=== PATIENT | male | born 1965 | race Caucasian/White ===

== ENCOUNTER 2020-11-25 07:54 | Outpatient (CLI) | payer MEDICARE, SELFPAY ==
[2020-11-25 08:02] VITALS: BP 122/81; PULSE 76; RESP 18; TEMP 36.5; O2SAT 97; BMI 33.7
[2020-11-25 08:39] VITALS: BP 127/81; PULSE 62; RESP 18; TEMP 36.7; O2SAT 92
[2020-11-25 09:32] VITALS: BP 115/79; PULSE 61; RESP 18; TEMP 36.7; O2SAT 99
== END 2020-11-25 07:55 | disposition home or self-care (01) ==
LOC: OPS 07:59
PROVIDERS: PCP Nurse Practitioner; Visit Provider Nurse Practitioner Family
DX: U07.1 COVID-19 (principal)
CPT/HCPCS: 96365

== ENCOUNTER 2021-10-28 14:29 | Emergency (ER) | payer MEDICARE, MEDICAID, SELFPAY ==
[2021-10-28] VITALS (12 sets, daily range): BP systolic 119–175; BP diastolic 87–108; PULSE 59–80; RESP 12–24; TEMP 36.5; O2SAT 94–99; BMI 34.0
--- NOTE | 2021-10-28 14:38 | ECG_ITS ---
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 Measurements Intervals [place] Rate: 84 P: 45 MO: 156 QRS: 69 QRSD: 84 T: 55 QT: 319 QTc: 379 Interpretive Statements SINUS RHYTHM WITH SINUS ARRHYTHMIA LOW QRS VOLTAGE IN PRECORDIAL LEADS [QRS DEFLECTION < 1.0 mV IN CHEST LEADS] No previous ECG available for comparison Electronically Signed On 10-29-2021 6:18:54 CDT by Pham Melton M.D. [email or web address] Matter/store/NU/[id number] f
--- NOTE | 2021-10-28 15:06 | ED_ITS ---
HPI - Chest Pain General: Chief Complaint: Chest Pain Stated Complaint: Chest pain Time Seen by Provider: 10/28/21 14:56 Source: patient Mode of arrival: ambulatory Limitations: no limitations History of Present Illness: This patient presents to the emerged part with chest pain. He states the chest pain began after he awakened from sleep. He states it did not seemingly awaken him and he slept his normal amount of time. He states he has pain which is retrosternal. He also has what feels like burn ing sensation up into his throat. He states he has had several bouts of emesis associated with his pain which did not change his pain. He states there is no blood in his emesis. He states he had a coronary angiogram done a few years ago after he was having episodes of chest pain which was associated with cocaine use. He states he had clean coronaries at that time. He has hypertension and takes medications for that condition. He does not smoke cigarettes and rarely drinks alcohol. He is not a bladder in his stools or black tarry stools. He has had a prior cholecystectomy. He states that he use the weedeater yesterday but did not have any pain difficulty breathing etc. at that time. MD complaint: chest pain Onset: during rest Quality: aching and burning Associated symptoms: Reports vomiting; Deny abdominal pain, dyspnea, fever(s) or syncope Review of Systems Const: Denies: fever(s) or chills Eyes: Denies: change in vision ENMT: Denies: odynophagia, nasal discharge or nasal congestion Card: Reports: chest pain; Denies: edema, lightheadedness, syncope or pre-syncope Resp: Denies: dyspnea, productive cough or non-productive cough GI: Reports: vomiting; Denies: abdominal pain, hematemesis or change in bowel habits : Denies: flank pain, difficulty urinating or dysuria Musc: Denies: neck pain, back pain, extremity pain or extremity swelling Skin/Breast: Denies: rash Neuro: Denies: headache(s), numbness in extremities, weakness in extremities or dizziness Psych: Denies: anxiety or depression Endo: Denies: polyuria or polydipsia Abdias/Lymph: Denies: easy bruising or easy bleeding Physical Exam Narrative: EXAM NARRATIVE: Patient makes good eye contact speech is goal-directed. Const: COMMON NORMALS: patient oriented x3 and alert GENERAL APPEARANCE: cooperative and comfortable NUTRITIONAL APPEARANCE: overweight ORIENTATION/CONSCIOUSNESS: Yes awake HENMT: COMMON NORMALS: normocephalic, atraumatic, Normal nasal mucous membranes and turbinates present, moist oral mucous membranes and oropharynx normal HEAD & SCALP: normocephalic and atraumatic NOSE: Normal nasal mucous membranes and turbinates present Eye: COMMON NORMALS: Equal, round and reactive pupils present, EOMs intact bilaterally, conjunctivae normal and no scleral icterus CONJUNCTIVA: Yes conjunctivae normal PUPIL: Yes Equal, round and reactive pupils present Neck/C-Spine: COMMON NORMALS: full ROM, no lymphadenopathy, supple and no JVD Chest: COMMONS NORMALS: normal inspection of the chest and normal palpation of entire chest wall Resp: COMMON NORMALS: normal respiratory effort, No retractions, No use of accessory muscles and clear to auscultation bilaterally AUSCULTATION: clear to auscultation bilaterally Cardio: COMMON NORMALS: no JVD, regular rate, regular rhythm, No murmurs present (Cardio) and Peripheral pulses 2+ throughout RATE: regular rate RHYTHM: regular rhythm PERIPHERAL PULSES: Peripheral pulses 2+ throughout GI: COMMON NORMALS: Normal to inspection, nondistended, normoactive bowel sounds present, no masses and no bruits OTHER: Has some mild epigastric tenderness to palpation. Abdomen somewhat distended and obese but otherwise no rebound guarding or peritoneal signs. : COMMON NORMALS: Yes no CVA tenderness BLADDER/KIDNEY EXAM: Yes no CVA t enderness Back/Pelvis: COMMON NORMALS: no CVA tenderness, thoracic and lumbar spine normal to inspection, no thoracic nor lumbar tenderness and thoraco-lumbar ROM normal Extremity: COMMON NORMALS: normal to inspection, full ROM, no calf tenderness and no pedal edema Neuro: COMMON NORMALS: patient oriented x3, moves all extremities, no focal motor deficits and no sensory deficits noted SENSORIUM/ORIENTATION: Yes alert CRANIAL NERVES: Yes CN normal except as noted Psych: COMMON NORMALS: mental status grossly normal Skin: COMMON NORMALS: no rashes or lesions noted, no wounds, turgor normal and no petechiae GENERAL SKIN EXAM: no rashes or lesions noted and turgor normal Course Reevaluation(s): Reevaluation #1: Patient states he is feeling much better. No pain or discomfort at this time. Discussed current findings. Awaiting second troponin and as long as that is reassuring I think he will be safe to be discharged with a PPI and close follow- up. Time: 17:39 Vital Signs: Vital signs: Vital Signs Temperature 97.7 F 10/28/21 14:43 Pulse Rate 69 10/28/21 16:00 Respiratory Rate 16 10/28/21 16:48 Blood Pressure 123/98 10/28/21 16:00 Pulse Oximetry 94 10/28/21 16:00 MDM - Chest Pain Medical Decision Making Patient presented with burning substernal and epigastric pain that began this morning associated with emesis. Has history of having a negative angiogram in the last few years. Also has had a prior cholecystectomy. His work-up today revealed reassuring electrocardiograms, serial troponins and with resolution of his symptoms after PPI and analgesics. Clinical picture does not suggest an ongoing emergency medical condition and suggest more acute gastritis, esophagitis etc. He is currently clinically stable and the plan will be to place him on a proton pump inhibitor for the next 4 weeks. Discussed expected course and return precautions with both he and spouse. Stable at this time. Lab Data I reviewed the patient's lab results. : 10/28/21 15:03 10/28/21 15:03 Radiology Impressions Chest X-Ray 10/28/21 15:10 Impression: Negative chest. Laboratory Results WBC 9.1 10^3/uL (4.0-10.0) 10/28/21 15:03 RBC 4.86 10^6/uL (4.1-5.3) 10/28/21 15:03 Hgb 15.0 g/dL (11.7-16.6) 10/28/21 15:03 Hct 45.1 % (42.0-52.0) 10/28/21 15:03 MCV 92.8 fl (80-94) 10/28/21 15:03 MCH 30.9 pg (28.0-34.0) 10/28/21 15:03 MCHC 33.3 g/dL (30.0-36.0) 10/28/21 15:03 RDW 12.4 % (12.1-15.1) 10/28/21 15:03 Plt Count 225 10^3/cmm (130-400) 10/28/21 15:03 MPV 9.3 fL (7.4-10.4) 10/28/21 15:03 Neut % (Auto) 65.7 % 10/28/21 15:03 Lymph % (Auto) 24.0 % 10/28/21 15:03 [place] % (Auto) 7.5 % 10/28/21 15:03 Eos % (Auto) 2.1 % 10/28/21 15:03 Baso % (Auto) 0.4 % 10/28/21 15:03 Neut # (Auto) 5.97 10^3/uL (1.8-7.7) 10/28/21 15:03 Lymph # (Auto) 2.2 10^3/uL (0.8-4.8) 10/28/21 15:03 [place] # (Auto) 0.7 10^3/uL (0.2-0.9) 10/28/21 15:03 Eos # (Auto) 0.2 10^3/uL (0.0-0.8) 10/28/21 15:03 Baso # (Auto) 0.0 10^3/uL (0.0-0.1) 10/28/21 15:03 Nucleated RBC % (auto) 0 % 10/28/21 15:03 Nucleated RBCs # 0.0 /100WBC 10/28/21 15:03 Sodium 139 mmol/L (136-145) 10/28/21 15:03 Potassium 4.6 mmol/L (3.5-5.1) 10/28/21 15:03 Chloride 104 mmol/L (98-107) 10/28/21 15:03 Carbon Dioxide 25 mmol/L (22-29) 10/28/21 15:03 Anion Gap 14.6 (5-19) 10/28/21 15:03 BUN 23 mg/dL (6-20) H 10/28/21 15:03 Creatinine 1.0 mg/dL (0.7-1.2) 10/28/21 15:03 GFR Calculation 77.6 mL/min (90-130) L 10/28/21 15:03 Glucose 87 mg/dL (65-115) 10/28/21 15:03 Calculated Osmolality 291 mOsm/kg (285-295) 10/28/21 15:03 Calcium 9.8 mg/dL (8.5-10.5) 10/28/21 15:03 Total Bilirubin 0.3 mg/dL (0.15-1.2) 10/28/21 15:03 AST 21 U/L (0-40) 10/28/21 15:03 ALT 21 U/L (0-41) 10/28/21 15:03 Alkaline Phosphatase 80 U/L (40-130) 10/28/21 15:03 Troponin T Baseline 6 ng/L (0-15) 10/28/21 15:03 Troponin T 120 Minute 6.00 ng/L (0-15) 10/28/21 16:55 Total Protein 7.3 g/dL (6.6-8.7) 10/28/21 15:03 Albumin 4.3 g/dL (3.5-5.2) 10/28/21 15:03 Globulin 3.0 g/dL (1.3-4.6) 10/28/21 15:03 Discharge Plan Discharge Patient Disposition: Home Clinical Impression: Gastroesophageal reflux Condition: Stable Prescriptions: New pantoprazole [Protonix] 40 mg tablet,delayed release (DR/EC) 40 mg PO DAILY 28 Days Qty: 30 0RF No Action cyclobenzaprine 10 mg Tablet 10 mg PO TID PRN (Reason: Muscle Spasm) Zyrtec 10 mg Tablet 10 mg PO DAILY atorvastatin 10 mg tablet 10 mg PO DAILY meloxicam 15 mg tablet 15 mg PO DAILY lisinopril 20 mg tablet 20 mg PO DAILY prednisone 20 mg tablet 40 mg PO DAILY PRN (Reason: Shortness Of Breath) propranolol 60 mg capsule,extended release 24 hr 60 mg PO DAILY sertraline 100 mg tablet 100 mg PO DAILY sumatriptan succinate 50 mg Tablet 50 mg PO Q2H PRN (Reason: Migraine Headache) Rx Instructions: do not exceed 4 doses per 24 hrs hydrocodone-acetaminophen 10-325 mg tablet 1 tab PO BID montelukast 10 mg tablet 10 mg PO DAILY diazepam 5 mg tablet 5 mg PO BID Atrovent HFA 17 mcg/actuation HFA aerosol inhaler 2 puff INHALATION Q6H PRN (Reason: Shortness Of Breath) Discharge Orders: Discharge ED (Routine); Ordered 10/28/21 Ordered By: Jesus Manuel France Referrals: Margarito Eldridge FNP [Primary Care Provider] - Discharge Diet: Usual diet Discharge Activity: Increase activity as tolerated Patient Instructions: Opioid Safety Activity Restrictions/Additional Instructions: As we discussed while you are in the emergency department today our findings do not suggest a serious cause of your symptoms such as heart attack etc. today. This is probably related to inflammation of your stomach lining called gastritis or gastroesophageal reflux. We have provided a prescription to help reduce acid production in your stomach to take for the next 4 weeks. Should you develop any sustained chest pain, shortness of breath, changes in your symptoms otherwise return to this or the nearest emergency department for reevaluation. Coding Level of Care Code ED Vehicle Calibration Engineer for Bridger Fwmaninder Exam Comprehensive
--- NOTE | 2021-10-28 15:10 | XR_ITS ---
WS: [id number] Portable AP upright chest, 10/28/2021 Clinical Data: cp Comparison: None. Findings: No nodules, masses or effusions are seen. The heart is normal. The pulmonary vascularity is not increased. No pneumonia or pneumothorax is seen. Monitor leads are on the chest wall. There is a slight levoscoliosis of the upper thoracic spine. XR/XR chest 1V portable [id number] Impression: Negative chest.
[2021-10-28] MEDS: aspirin 81 mg Chew Tablet 324 MG PO (15:18)
[2021-10-28] MEDS: morphine 4 mg/mL SDV 1 mL IVP (15:18)
[2021-10-28] MEDS: pantoprazole 40 mg SDV IVP (15:18)
[2021-10-28] MEDS: sodium chloride 0.9% 500 ML 999 ML IV (15:19)
[2021-10-28 15:28] LABS: Basophils % 0.4 %; Eosinophils # 0.2 10^3/uL (0.0-0.8); Eosinophils % 2.1 %; Hematocrit 45.1 % (42.0-52.0); Lymphocytes # 2.2 10^3/uL (0.8-4.8); Mean Corpuscular HGB Conc 33.3 g/dL (30.0-36.0); Mean Corpuscular Hemoglobin 30.9 pg (28.0-34.0); Mean Corpuscular Volume 92.8 fl (80-94); Mean Platelet Volume 9.3 fL (7.4-10.4); Monocytes # 0.7 10^3/uL (0.2-0.9); Monocytes % 7.5 %; Neutrophils # 5.97 10^3/uL (1.8-7.7); Neutrophils % 65.7 %; Nucleated Red Blood Cells % 0 %; Platelet Count 225 10^3/cmm (130-400); Red Blood Count 4.86 10^6/uL (4.1-5.3); Red Cell Distribution Width 12.4 % (12.1-15.1); White Blood Count 9.1 10^3/uL (4.0-10.0)
[2021-10-28 15:53] LABS: Troponin(5th) Baseline 6 ng/L (0-15)
[2021-10-28 15:55] LABS: Alanine Aminotransferase 21 U/L (0-41); Albumin Level 4.3 g/dL (3.5-5.2); Alkaline Phosphatase 80 U/L (40-130); Blood Urea Nitrogen 23 mg/dL (6-20); Calcium 9.8 mg/dL (8.5-10.5); Carbon Dioxide 25 mmol/L (22-29); Chloride 104 mmol/L (98-107); Glomerular Filtration Rate 77.6 mL/min (90-130); Glucose 87 mg/dL (65-115); Osmolality Calculated 291 mOsm/kg (285-295); Sodium 139 mmol/L (136-145); Total Bilirubin 0.3 mg/dL (0.15-1.2); Total Protein 7.3 g/dL (6.6-8.7)
[2021-10-28 16:07] LABS: Anion Gap 14.6 (5-19); Aspartate Amino Transferase 21 U/L (0-40); Potassium 4.6 mmol/L (3.5-5.1)
[2021-10-28] MEDS: HYDROmorphone 1 mg/mL INJ 1 mL IVP (16:48)
--- NOTE | 2021-10-28 17:43 | ECG_ITS ---
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 Measurements Intervals [place] Rate: 54 P: 58 MA: 160 QRS: 76 QRSD: 80 T: 67 QT: 366 QTc: 348 Interpretive Statements SINUS BRADYCARDIA Compared to ECG 10/28/2021 14:38:26 Sinus rhythm no longer present Sinus arrhythmia no longer present Electronically Signed On 10-29-2021 6:27:53 CDT by Pham Melton M.D. [email or web address] hospitalVisure Solutionslima memorial hospitalHammer and Grind/store/OM/[id number]
[2021-10-28 18:10] LABS: Troponin 5 2HR Delta 0 ABS# (0-10)
== END 2021-10-28 18:55 | disposition home or self-care (01) ==
PROVIDERS: Emergency Provider Emergency Medicine; PCP Nurse Practitioner
DX: K21.9 Gastro-esophageal reflux disease without esophagitis (principal)
CPT/HCPCS: 71045; 80053; 84484; 85025; 93005; 96374; 96375; 99285; C9113; J1170; J2270; J7040

== ENCOUNTER → 2022-12-05 15:45 | Outpatient (BNVA) | payer MEDICARE, MEDICAID, SELFPAY | PROVIDERS: PCP Nurse Practitioner; Visit Provider Internal Medicine Cardiovascular Disease | DX: R07.9 Chest pain, unspecified (principal); R55 Syncope and collapse; I10 Essential (primary) hypertension; J44.89 Other specified chronic obstructive pulmonary disease; E78.5 Hyperlipidemia, unspecified; G47.33 Obstructive sleep apnea (adult) (pediatric) | CPT/HCPCS: 93005; 99204 ==

== ENCOUNTER 2022-12-15 11:56 | Outpatient (CLI) | payer MEDICARE, MEDICAID, SELFPAY ==
--- NOTE | 2022-12-15 12:15 | USCV_ITS ---
Ariel Martin Age: 57 Gender: M : 1965 Exam Date: 12/15/2022 12:18 Ordering Phys: Rylee Wylie MD ([email or web address]) Technologist: Exam Location: [facility] [place] Indication: chest pain BP: 125 / 75 HR: 66 Rhythm: Sinus Technical Quality: Adequate MEASUREMENTS (Male / Female) Normal Values 2D ECHO LV Diastolic Diameter PLAX 3.8 cm 4.2 - 5.9 / 3.9 - 5.3 cm LV Systolic Diameter PLAX 2.2 cm IVS Diastolic Thickness 1.2 cm 0.6 - 1.0 / 0.6 - 0.9 cm IVS Systolic Thickness 1.5 cm LVPW Diastolic Thickness 1.0 cm 0.6 - 1.0 / 0.6 - 0.9 cm LVPW Systolic Thickness 1.0 cm LVOT Diameter 2.3 cm LV Ejection Fraction 2D Teich 73.2 % LV Ejection Fraction MOD 2C 60.7 % LV Ejection Fraction 2C AL 59.3 % LA Diameter 3.5 cm IVC Diameter 2.1 cm M-MODE Aortic Annulus Diameter 3.8 cm LA Ao Ratio MM 1.1 MV E Point Septal Separation 0.9 cm DOPPLER AV Peak Velocity 99.0 cm/s LVOT Peak Velocity 90.0 cm/s AV Area Cont Eq vti 6.0 cm squared AV Area Cont Eq pk 3.9 cm squared MV Area PHT 2.9 cm squared Mitral E to A Ratio 0.8 MV E' Velocity 36.5 cm/s Mitral E to MV E' Ratio 6.9 Mitral E to LV E' Lateral Ratio 6.0 Mitral E to LV E' Septal Ratio 8.3 TR Peak Velocity 176.8 cm/s TR Peak Gradient 12.5 mmHg TV Peak E Velocity 82.0 cm/s Right Atrial Pressure 3.0 mmHg Pulmonary Artery Systolic Pressu 15.5 mmHg FINDINGS Left Ventricle Normal left ventricular size and systolic function, EF 72 %. No regional wall motion abnormalities. Right Ventricle The right ventricle is normal in size and function. Right Atrium The right atrium is normal in size. Left Atrium The left atrium is normal in size. Mitral Valve No gross abnormalities noted Aortic Valve No gross abnormalities noted Tricuspid Valve Trace tricuspid valve regurgitation. Pulmonic Valve No gross abnormalities noted Pericardium Normal pericardium without effusion. Aorta Normal ascending aorta dimension. IVC The inferior vena cava appears normal. CONCLUSIONS Normal left ventricular size and systolic function, EF 72 %. No regional wall motion abnormalities. Normal cardiac chamber sizes. No significant stenotic or regurgitant lesions Trace tricuspid valve regurgitation. Estimated pulmonary artery peak systolic pressure 22 mmHg There is no pericardial effusion. No similar previous studies are available for comparison Dr Rylee Wylie MD FAC (Electronically Signed) Final Date: 17 December 2022 12:32 S
== END 2022-12-15 11:57 | disposition home or self-care (01) ==
PROVIDERS: PCP Nurse Practitioner; Visit Provider Internal Medicine Cardiovascular Disease
DX: R06.09 Other forms of dyspnea (principal); R07.9 Chest pain, unspecified
CPT/HCPCS: 93306

== ENCOUNTER → 2023-02-20 12:19 | Outpatient (BNVA) | payer MEDICARE, MEDICAID, SELFPAY | PROVIDERS: PCP Nurse Practitioner; Visit Provider Internal Medicine Pulmonary Disease | DX: J44.89 Other specified chronic obstructive pulmonary disease (principal); Z87.891 Personal history of nicotine dependence; R06.02 Shortness of breath | CPT/HCPCS: 36415; 82785; 85025; 86003; 99204 ==

== ENCOUNTER 2023-03-01 10:03 | Outpatient (CLI) | payer MEDICARE, MEDICAID, SELFPAY ==
--- NOTE | 2023-03-01 10:15 | CT_ITS ---
WS: [id number] LDCT LUNG CANCER SCREENING TECHNIQUE: Noncontrast CT of the chest with coronal and sagittal reformatted images. CLINICAL INFORMATION: Cancer Screen COMPARISON: None. DLP: 93.81 mGy.cm DIvol: Mean CTDIvol: 2.20 (mGy) All CT scans at [facility] use at least one of these dose optimization techniques: automat ed exposure control; mA and/or kV adjustment per patient size (includes targeted exams where dose is matched to clinical indication); or iterative reconstruction. FINDINGS: Slight nodular thickening along the RIGHT minor fissure. Tiny subpleural nodule RIGHT upper lobe posteriorly. Slight bibasilar atelectasis. Normal caliber thoracic aorta. Mild aortic calcification. No mediastinal or hilar lymphadenopathy. No axillary lymphadenopathy. Prior cholecystectomy. Normal GE junction. Mild thoracic curve. Mild thoracic kyphosis. IMPRESSION: CT/CT lung screening [id number] LUNG-RADS: 2-Benign Appearance or Behavior FOLLOW UP: 12 Month: Continue annual screening with LDCT
== END 2023-03-01 10:04 | disposition home or self-care (01) ==
LOC: RAD 10:04
PROVIDERS: PCP Nurse Practitioner; Visit Provider Internal Medicine Pulmonary Disease
DX: Z12.2 Encounter for screening for malignant neoplasm of respiratory organs (principal); Z87.891 Personal history of nicotine dependence
CPT/HCPCS: 71271

== ENCOUNTER 2023-03-09 06:56 | Outpatient (CLI) | payer MEDICARE, MEDICAID, SELFPAY | END 2023-03-09 06:57 | disposition home or self-care (01) | PROVIDERS: PCP Nurse Practitioner; Visit Provider Internal Medicine Pulmonary Disease | DX: J44.89 Other specified chronic obstructive pulmonary disease (principal) | CPT/HCPCS: 94010; 94618; 94726; 94729 ==

== ENCOUNTER → 2023-03-13 12:48 | Outpatient (BNVA) | payer MEDICARE, MEDICAID, SELFPAY | PROVIDERS: PCP Nurse Practitioner; Visit Provider Nurse Practitioner Family | DX: I10 Essential (primary) hypertension (principal); R07.9 Chest pain, unspecified | CPT/HCPCS: 99213 ==

== ENCOUNTER → 2023-04-03 13:19 | Outpatient (BNVA) | payer MEDICARE, MEDICAID, SELFPAY | PROVIDERS: PCP Nurse Practitioner; Visit Provider Internal Medicine Pulmonary Disease | DX: J44.89 Other specified chronic obstructive pulmonary disease (principal); Z12.2 Encounter for screening for malignant neoplasm of respiratory organs; G47.33 Obstructive sleep apnea (adult) (pediatric); Z87.891 Personal history of nicotine dependence; Z79.52 Long term (current) use of systemic steroids; Z79.82 Long term (current) use of aspirin; Z99.81 Dependence on supplemental oxygen; Z91.198 Patient's noncompliance with other medical treatment and regimen for other reason | CPT/HCPCS: 99214 ==

== ENCOUNTER 2023-07-20 13:23 | Outpatient (CLI) | payer MEDICARE, MEDICAID, SELFPAY ==
[2023-07-20 14:07] LABS: Basophils # 0.1 10^3/uL (0.0-0.1); Basophils % 0.8 %; Eosinophils # 0.2 10^3/uL (0.0-0.8); Eosinophils % 2.7 %; Lymphocytes # 2.2 10^3/uL (0.8-4.8); Lymphocytes % 34.2 %; Mean Corpuscular Hemoglobin 31.4 pg (27-33); Mean Corpuscular Volume 92.2 fl (82-101); Mean Platelet Volume 8.7 fL (7.4-10.4); Monocytes # 0.5 10^3/uL (0.2-0.9); Monocytes % 8.3 %; Neutrophils # 3.39 10^3/uL (1.8-7.7); Neutrophils % 53.8 %; Nucleated Red Blood Cells % 0 %; Platelet Count 225 10^3/cmm (157-399); Red Blood Count 4.88 10^6/uL (3.85-5.65); Red Cell Distribution Width 12.6 % (12.1-15.1); White Blood Count 6.29 10^3/uL (3.29-11.43)
[2023-07-20 14:16] LABS: Amphetamines Screen Urine Negative (Negative); Barbiturates Screen Urine Negative (Negative); Benzodiazepines Screen Urine Positive (Negative); Cocaine Screen Urine Negative (Negative); Opiate Screen Urine Positive (Negative); PCP Screen Urine Negative (Negative); THC Screen Urine Positive (Negative)
[2023-07-20 14:24] LABS: Estmated Average Glucose 117; Hemoglobin A1C 5.7 % (4.0-6.0)
== END 2023-07-20 13:24 | disposition home or self-care (01) ==
PROVIDERS: PCP Nurse Practitioner; Visit Provider Nurse Practitioner
DX: Z79.899 Other long term (current) drug therapy (principal); Z79.891 Long term (current) use of opiate analgesic
CPT/HCPCS: 36415; 80306; 83036; 85025

== ENCOUNTER 2024-09-25 13:21 | Outpatient (CLI) | payer MEDICARE, MEDICAID, SELFPAY ==
[2024-09-25 14:13] LABS: Hematocrit 43.6 % (37-53); Hemoglobin 14.50 g/dL (11.27-16.99); Mean Corpuscular HGB Conc 33.3 g/dL (30-55); Mean Corpuscular Hemoglobin 30.3 pg (27-33); Mean Corpuscular Volume 91.2 fl (82-101); Nucleated Red Blood Cells % 0 %; Platelet Count 213 10^3/cmm (157-399); Red Blood Count 4.78 10^6/uL (3.85-5.65); White Blood Count 5.95 10^3/uL (3.29-11.43)
[2024-09-25 14:56] LABS: Alanine Aminotransferase 21 U/L (0-41); Albumin Level 4.4 g/dL (3.5-5.2); Alkaline Phosphatase 75 U/L (40-130); Anion Gap 13.8 (5-19); Aspartate Amino Transferase 21 U/L (0-40); Blood Urea Nitrogen 24 mg/dL (6-20); Calcium 9.5 mg/dL (8.5-10.5); Carbon Dioxide 25 mmol/L (22-29); Chloride 106 mmol/L (98-107); Cholesterol 185 mg/dL (0-200); Globulin 2.7 g/dL (1.3-4.6); Glucose 92 mg/dL (65-115); HDL Cholesterol 50 mg/dL (60-100); Osmolality Calculated 294 mOsm/kg (285-295); Potassium 4.8 mmol/L (3.5-5.1); Prostate Specific Antigen 0.523 ng/mL (0-4); Sodium 140 mmol/L (136-145); Thyroid Stimulating Hormone 1.73 uIU/mL (0.27-4.20); Total Protein 7.1 g/dL (6.6-8.7); Triglycerides 80 mg/dL (0-150); Vitamin B12 386 pg/mL (232-1245)
== END 2024-09-25 13:22 | disposition home or self-care (01) ==
PROVIDERS: PCP Nurse Practitioner; Visit Provider Nurse Practitioner
DX: E55.9 Vitamin D deficiency, unspecified (principal); I10 Essential (primary) hypertension; R97.20 Elevated prostate specific antigen [PSA]
CPT/HCPCS: 36415; 80053; 80061; 82306; 82607; 84153; 84443; 85025

== ENCOUNTER 2024-11-11 14:54 | Outpatient (CLI) | payer MEDICARE, MEDICAID, SELFPAY ==
[2024-11-11 16:39] LABS: PCP Screen Urine Negative (Negative)
== END 2024-11-11 14:55 | disposition home or self-care (01) ==
PROVIDERS: PCP Nurse Practitioner; Visit Provider Nurse Practitioner
DX: Z79.899 Other long term (current) drug therapy (principal)
CPT/HCPCS: 80306; 80326; 80349; 80361